=== PATIENT | female | born 1960 | race American Indian/Alaskan Native ===

== ENCOUNTER 2016-09-19 13:50 | Outpatient (CLI) | payer OTHER ==
--- NOTE | 2016-09-19 15:14 | Mammography Report ---
BILATERAL DIGITAL SCREENING MAMMOGRAM : 09/19/16 13:50:00 CLINICAL: Routine screening. COMPARISON:None available. She doesn't remember where she last had a mammogram. FINDINGS: There are bilateral scattered fibroglandular densities. A left retroareolar focal asymmetry with architectural distortion requires additional imaging.No suspicious ossifications. The right breast is negative. IMPRESSION: Left focal asymmetry requiring further workup. BI-RADS CATEGORY: 0 -- Additional Imaging Evaluation Required RECOMMENDATION: Recall for left spot magnification MLO and CC views and left breast ultrasound if needed. ACR BI-RADS MAMMOGRAPHIC CODES: 0 = Needs additional imaging evaluation; 1 = Negative; 2 = Benign; 3 = Probably benign; 4 = Suspicious; 5 = Malignant; 6 = Known biopsy-proven malignancy COMMENT: 1. Dense breast tissue, i.e., adenosis, fibrocystic changes, etc., may obscure an underlying neoplasm. 2. Approximately 10% of cancers are not detected with mammography. 3. A negative mammography report should not delay biopsy if a clinically suspicious mass is present. COMMENT: Patient follow-up letters are generated via our [employer] application.
== END 2016-09-19 13:51 | disposition home or self-care (01) ==
LOC: SPVWC 13:50
PROVIDERS: ATTEND Family Medicine
DX: Z12.31 Encounter for screening mammogram for malignant neoplasm of breast (principal)
CPT/HCPCS: 77067; G0202

== ENCOUNTER 2016-10-02 14:53 | Outpatient (CLI) | payer OTHER ==
--- NOTE | 2016-10-02 15:45 | Ultrasound Report ---
Diagnostic left mammogram and targeted left breast ultrasound. History: Recall for left asymmetry. Findings: Spot compression images of the area of interest reveal partial effacement of the small asymmetric density, but no definite mass is seen. Targeted ultrasound of the retroareolar region demonstrates no evidence of a cystic or solid lesion. Impression: No suspicious findings. BI-RADS code: 2. Recommendation: Annual screening.
== END 2016-10-02 14:54 | disposition home or self-care (01) ==
LOC: SPVWC 14:53
PROVIDERS: ATTEND Family Medicine
DX: R92.8 Other abnormal and inconclusive findings on diagnostic imaging of breast (principal)
CPT/HCPCS: 76641; G0206

== ENCOUNTER 2018-11-23 14:14 | Outpatient (CLI) | payer OTHER ==
--- NOTE | 2018-11-24 08:37 | Mammography Report ---
Screening mammogram: Routine views are compared to prior exams in 2017. In the superomedial aspect of left breast there is a question of a developing asymmetry. The breast pattern bilaterally is otherwise unremarkable and that of intermediate fibroglandular density in a generally symmetric distribution. CAD used. Impression: Left asymmetry. Recommendation: Additional compression imaging of the left breast. Ultrasound, if needed. BI-RADS CATEGORY: 0 = Needs additional imaging evaluation ACR BI-RADS MAMMOGRAPHIC CODES: 0 = Needs additional imaging evaluation; 1 = Negative; 2 = Benign; 3 = Probably benign; 4 = Suspicious; 5 = Malignant; 6 = Known biopsy-proven malignancy COMMENT: 1. Dense breast tissue, i.e., adenosis, fibrocystic changes, etc., may obscure an underlying neoplasm. 2. Approximately 10% of cancers are not detected with mammography. 3. A negative mammography report should not delay biopsy if a clinically suspicious mass is present.
== END 2018-11-23 14:15 | disposition home or self-care (01) ==
LOC: SPVWC 14:14
PROVIDERS: ATTEND Internal Medicine
DX: Z12.31 Encounter for screening mammogram for malignant neoplasm of breast (principal)
CPT/HCPCS: 77067

== ENCOUNTER 2021-02-15 16:11 | Outpatient (CLI) | payer OTHER ==
--- NOTE | 2021-02-15 17:15 | Mammography Report ---
DIGITAL SCREENING MAMMOGRAM WITH CAD, 02/15/2021 CLINICAL INFORMATION / INDICATION: Routine screening mammography. TECHNIQUE: Digital bilateral 2D mammography was obtained in the craniocaudal and mediolateral obliqu e projections. This examination was interpreted with the benefit of Computer-Aided Detection analysis . COMPARISON: 11/23/2018, 09/19/2016 FINDINGS: Breast Density: There are scattered areas of fibroglandular density. No dominant mass, suspicious calcifications, or architectural distortion in either breast. IMPRESSION: No mammographic evidence of malignancy. Follow up recommendation: Routine yearly BI-RADS Category 1: Negative. A "normal" or negative report should not discourage follow up or biopsy of a clinically significant f inding. A written summary of these findings will be mailed to the patient. The patient will be entered into a mammography reporting system which will generate a reminder letter for the patient's next appointmen t at the appropriate interval. [employer] recommends yearly mammograms starting at age 40 and continuing as l tesfaye as a woman is in good health. Breast MRI is recommended for women with an approximate 20-25% or greater lifetime risk of breast cancer, including women with a strong family history of breast or ova moisés cancer or who have been treated for Hodgkin's disease. Signer Name: Sapna Antoine MD Signed: 02/15/2021 5:11 PM Workstation Name: [id number]
== END 2021-02-15 16:12 | disposition home or self-care (01) ==
LOC: SPVWC 16:11
PROVIDERS: ATTEND Internal Medicine
DX: Z12.31 Encounter for screening mammogram for malignant neoplasm of breast (principal)
CPT/HCPCS: 77067